=== PATIENT | female | born 1975 | race African-American/Black ===

== ENCOUNTER 2019-06-29 00:24 | Emergency (ER) | payer OTHER ==
[~2019-06-29] VITALS: Ht 160 cm; Wt 117.9 kg
[~2019-06-29 00:24] MED LIST: APAP500 PO; COLACE 100 MG100 MG PO; DELUXE TABLET1 EACH; DERMOPLAST SPRA56 ML; HYDROCHLOROTH12.5 MG PO; IBUPROFEN 800800 M1; LANOLIN56 GM; LISINOPRIL-HCT1 EACH; PRENATAL FORMU1 EAC4 PO; SENNA PO; TUCKS MEDICATE1 EAC1
[2019-06-29 01:23] LABS: URINE BILIRUBIN NEGATIVE (Negative); URINE BLOOD NEGATIVE (Negative); URINE CLARITY CLEAR; URINE COLOR YELLOW; URINE GLUCOSE-RANDOM* NEGATIVE (Negative); URINE KETONES NEGATIVE (Negative); URINE LEUKOCYTES-REFLEX TRACE (Negative); URINE NITRITE-REFLEX NEGATIVE (Negative); URINE PROTEIN (DIPSTICK) TRACE (Negative); URINE SPECIFIC GRAVITY 1.015 (1.005-1.035)
[2019-06-29] MEDS ORDERED: ONDANSETRON ODT8 MG PO (01:55)
[2019-06-29 03:38] LABS: ABSOLUTE NEUTROPHILS 6.6 thou/uL (1.4-8.2); BASOPHILS 0.7 % (0.0-2.0); EOSINOPHILS 0.9 % (0.0-3.0); HEMATOCRIT 40.5 % (37.0-47.0); HEMOGLOBIN 13.3 gm/dL (12.0-15.0); MCH 27.4 pg (26.0-34.0); MCHC 32.8 g/dL (28.0-37.0); MCV 83.4 fL (80.0-100.0); MONOCYTES 6.2 % (1.0-8.0); PLATELET COUNT 304 thou/uL (150-400); POLYS 68.2 % (36.0-66.0); RBC 4.85 mil/uL (4.20-5.00); RDW 14.8 % (10.5-14.5); WBC 9.7 thou/uL (4.0-11.0)
[2019-06-29 03:45] LABS: ANION GAP 7 mmol/L (7-16); BUN 6 mg/dL (7-18); CHLORIDE 104 mmol/L (98-107); CO2 27 mmol/L (21-32); CREATININE 0.8 mg/dL (0.6-1.0); GLUCOSE 88 mg/dL (74-106); POTASSIUM 4.9 mmol/L (3.5-5.1); SODIUM 138 mmol/L (136-145)
[2019-06-29 03:55] LABS: ALBUMIN 3.1 g/dL (3.4-5.0); LIPASE 6676 U/L (73-393); SGOT 142 U/L (15-37); SGPT 111 U/L (30-65); TOTAL BILIRUBIN 1.4 mg/dL (<0.1-1.0); TOTAL PROTEIN 8.5 g/dL (6.4-8.2); TROPONIN-I <0.06 ng/mL (<0.06)
[2019-06-29] MEDS ORDERED: NORCO 5-325 TA1 EAC1 PO (04:54)
[2019-06-29 05:29] VITALS: BP 145/86
--- NOTE | 2019-06-30 07:59 | EKG ---
[place] [id number] [facility] [place] [address] ELECTROCARDIOGRAM REPORT Name: LUCIA FORTE [id number] Admission: 06/29/19 Attend Phys: Discharge: 06/29/19 Date of : 73 Report #: [id number] THIS REPORT FOR: //name// [facility] ED Test Date: 2019-06-29 Test Time: 02:32:52 Pat Name: LUCIA FORTE Department: Room: Gender: F [employer]: : 1975 Requested By: Scottie Lawrence Order Number: [id number] MD: Alexander Trevizo Measurements Intervals [place] Rate: 69 P: 51 VA: 164 QRS: 49 QRSD: 86 T: 1 QT: 392 QTc: 420 Interpretive Statements Sinus rhythm Probable left atrial enlargement No previous ECG available for comparison Electronically Signed On 06-30-2019 7:58:52 CDT by Alexander Trevizo [email or web address] <ELECTRONICALLY SIGNED> By: Alexander Trevizo MD 06/30/19 [id number] 0232 0232 Alexander [email or web address] MD /LEONEL
== END 2019-06-29 05:30 | disposition home or self-care (01) ==
LOC: ER 00:24
PROVIDERS: Emergency Medicine
DX: K85.90 Acute pancreatitis without necrosis or infection, unspecified (principal); K80.20 Calculus of gallbladder without cholecystitis without obstruction; K59.00 Constipation, unspecified; R94.5 Abnormal results of liver function studies; R11.2 Nausea with vomiting, unspecified; I10 Essential (primary) hypertension; Z90.89 Acquired absence of other organs

== ENCOUNTER 2021-08-14 | Emergency (ER) | payer OTHER ==
[~2021-08-14] VITALS: Ht 160 cm; Wt 137.0 kg
[~2021-08-14] MED LIST changes: +NORCO 5-325 TA1 EAC1 PO; +ONDANSETRON ODT8 MG PO
[2021-08-14 01:27] LABS: URINE BILIRUBIN NEGATIVE (Negative); URINE BLOOD TRACE (Negative); URINE CLARITY SL CLOUDY; URINE COLOR YELLOW; URINE GLUCOSE-RANDOM* NEGATIVE (Negative); URINE KETONES TRACE (Negative); URINE LEUKOCYTES-REFLEX TRACE (Negative); URINE NITRITE-REFLEX NEGATIVE (Negative); URINE PROTEIN (DIPSTICK) 1+ (Negative); URINE SPECIFIC GRAVITY 1.025 (1.005-1.035); URINE UROBILINOGEN 0.2 E.U./dl (0.2-1.0)
[2021-08-14] MEDS ORDERED: CEPHALEXIN500 MG PO (01:50)
[2021-08-14] MEDS ORDERED: PYRIDIUM200 M2 PO (01:52)
[2021-08-14 01:59] VITALS: BP 156/62
== END 2021-08-14 02:01 | disposition home or self-care (01) ==
LOC: ER
PROVIDERS: Emergency Medicine
DX: N39.0 Urinary tract infection, site not specified (principal); I10 Essential (primary) hypertension; Z79.899 Other long term (current) drug therapy